=== PATIENT | male | born 1970 | race Caucasian/White ===

== ENCOUNTER 2017-02-21 18:28 | Inpatient (IN) | payer BC ==
[~2017-02-21] VITALS: Ht 188 cm; Wt 88.0 kg
[2017-02-21 18:29] VITALS: BP 137/90; PULSE 76; RESP 16; TEMP 97.8; O2SAT 99
[2017-02-21] MEDS ORDERED: DOXY100C PO (18:48)
--- NOTE | 2017-02-21 19:30 | PD ---
HPI Chief Complaint: Skin Problem Time Seen by Provider: 19:25 Travel History International Travel<30 days: No Contact w/Intl Traveler<30days: No Traveled to known affect area: No History of Present Illness HPI 46-year-old male presents to the emergency room for evaluation of itchy rash to bilateral anterior lower extremities. Patient states he first noticed the rash a few weeks ago on his ankles and since then it has spread. He went to his primary care physician who prescribed prednisone and doxycycline. States he has been taking both as prescribed and has run out of the prednisone. States he developed worsening redness after taking an extremely hot shower last night. He took a hot shower to soothe the itchiness. He has also been applying coconut oil to the rash. Since being on the doxycycline, patient denies having his legs exposed to the sun. When he is outside, he wears pants. He denies any pain to the legs. Patient denies fever, chills, nausea, and vomiting. Denies chronic medical conditions or daily medications. Patient also has a large bruise in the right anterior leg which he states is from accidentally hitting himself with a sledgehammer recently. FOR[facility], [facility] Past Medical History Medical History: Denies Significant Hx Influenza Vaccination: No Past Surgical History Surgical History: No Previous Surgery Social History Alcohol Use: No Tobacco Use: No Substance Use: No Allergies-Medications (Allergen,Severity, Reaction): Coded Allergies: Keflex (Verified Allergy, Severe, rash, 02/21/17) Reported Meds & Prescriptions Reported Meds & Active Scripts Active Reported Doxycycline Hyclate 100 Mg Cap 100 Mg PO BID Review of Systems Except as stated in HPI: all other systems reviewed are Neg Physical Exam Narrative GENERAL: Well-nourished, well-developed male in no acute distress. Afebrile. Ambulatory. SKIN: Focused skin assessment warm/dry. Erythematous rash and purpura of bilateral anterior lower extremities. HEAD: Normocephalic. EYES: No scleral icterus. No injection or drainage. NECK: Supple, trachea midline. No JVD or lymphadenopathy. CARDIOVASCULAR: Regular rate and rhythm without murmurs, gallops, or rubs. RESPIRATORY: Breath sounds equal bilaterally. No accessory muscle use. EXTREMITY: 2 posterior soft tissues pulses bilaterally. No obvious edema. Data Data Last Documented VS Vital Signs Date Time Temp Pulse Resp B/P Pulse Ox O2 Delivery O2 Flow Rate FiO2 02/21/17 20:09 87 16 142/84 99 Room Air 02/21/17 18:29 97.8 Orders Basic Metabolic Panel (Bmp) (02/21/17 19:40) Complete Blood Count With Diff (02/21/17 19:40) Prothrombin Time / Inr (Pt) (02/21/17 19:40) Act Partial Throm Time (Ptt) (02/21/17 19:40) Iv Access Insert/Monitor (02/21/17 19:40) Sodium Chloride 0.9% Flush (Ns Flush) (02/21/17 19:45) Vancomycin Inj (Vancomycin Inj) (02/21/17 19:45) Tetanus/Diphtheria Tox Adult (Tetanus/Di (02/21/17 19:45) Blood Culture (02/21/17 20:08) Admit To Inpatient (02/21/17 ) Vital Signs (Adult) Q4H (02/21/17 21:09) Activity Oob With Assistance (02/21/17 21:09) 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8 TH/MM3 Red Blood Count 4.71 MIL/MM3 Hemoglobin 14.9 GM/DL Hematocrit 43.3 % Mean Corpuscular Volume 92.0 FL Mean Corpuscular Hemoglobin 31.7 PG Mean Corpuscular Hemoglobin 34.5 % Concent Red Cell Distribution Width 11.9 % Platelet Count 221 TH/MM3 Mean Platelet Volume 7.9 FL Neutrophils (%) (Auto) 55.0 % Lymphocytes (%) (Auto) 18.0 % Monocytes (%) (Auto) 9.7 % Eosinophils (%) (Auto) 14.9 % Basophils (%) (Auto) 2.4 % Neutrophils # (Auto) 4.8 TH/MM3 Lymphocytes # (Auto) 1.6 TH/MM3 Monocytes # (Auto) 0.9 TH/MM3 Eosinophils # (Auto) 1.3 TH/MM3 Basophils # (Auto) 0.2 TH/MM3 CBC Comment DIFF FINAL Differential Comment Prothrombin Time 10.7 SEC Prothromb Time International 1.0 RATIO Ratio Activated Partial 23.5 SEC Thromboplast Time Sodium Level 138 MEQ/L Potassium Level 3.6 MEQ/L Chloride Level 100 MEQ/L Carbon Dioxide Level 32.7 MEQ/L Anion Gap 5 MEQ/L Blood Urea Nitrogen 34 MG/DL Creatinine 1.60 MG/DL Estimat Glomerular Filtration 47 ML/MIN Rate Random Glucose 101 MG/DL Calcium Level 9.3 MG/DL [facility] Medical Decision Making Medical Screen Exam Complete: Yes Emergency Medical Condition: Yes Medical Record Reviewed: Yes Differential Diagnosis Cellulitis, immunodeficiency, bruising, venous stasis Narrative Course 46 year-old male since to the emergency room for evaluation of bilateral anterior lower extremity redness for the past several weeks. She was seen his primary care physician and was prescribed doxycycline and prednisone. States it did not seem to improve his symptoms. Patient denies fever, chills, nausea, vomiting, and pain. States the rash feels itchy. He was told to come to the emergency room if symptoms persisted and states they appear worse today than they have so far. Physical exam reveals a lateral extremity erythema on the anterior legs. No lymphangitis. The erythema is not confluent and appears to be purpura/petechiae. CBC, CMP, PT, PTT/INR are essentially unremarkable other than mildly elevated creatinine. Vital signs stable. I spoke to my attending physician, Dr. Higginbotham, who believes patient should be admitted for IV antibiotics after failed outpatient therapy. Diagnosis Primary Impression: Cellulitis Qualified Code: L03.119 - Cellulitis of lower extremity, unspecified laterality Condition: Stable Tena Nicholson Feb 21, 2017 19:30
[2017-02-21] MEDS ORDERED: VANCOMYCIN INJ 1,250 MG in SODIUM CHLOR 0.9% 250 ML INJ 250 ML IV ONE (19:45)
[2017-02-21] MEDS ORDERED: TETANUS/DIPHTHERIA TOXOID ADULT 0.5 ML VIAL IM ONE (19:45)
[2017-02-21] MEDS ORDERED: SODIUM CHLORIDE 0.9% FLUSH 10 ML FLUSH IV FLUSH PRN ×2 (19:45→21:15)
[2017-02-21 20:09] VITALS: BP 142/84; PULSE 87; RESP 16; O2SAT 99
[2017-02-21 20:11] LABS: AUTOMATED NEUTROPHIL # 4.8 TH/MM3 (1.8-7.7); BASOPHIL # 0.2 TH/MM3 (0-0.2); BASOPHIL % 2.4 % (0.0-2.0); EOSINOPHIL # 1.3 TH/MM3 (0-0.4); EOSINOPHIL % 14.9 % (0.0-4.0); HEMATOCRIT 43.3 % (39.0-51.0); HEMO FLAGS DIFF FINAL; LYMPHOCYTE # 1.6 TH/MM3 (1.0-4.8); MEAN CORPUSCULAR HEMOGLOBIN 31.7 PG (27.0-34.0); MEAN CORPUSCULAR HGB CONC 34.5 % (32.0-36.0); MONO % 9.7 % (0.0-8.0); PLATELET COUNT 221 TH/MM3 (150-450); RED BLOOD COUNT 4.71 MIL/MM3 (4.50-5.90); RED CELL DISTRIBUTION WIDTH 11.9 % (11.6-17.2); WHITE BLOOD COUNT 8.8 TH/MM3 (4.0-11.0)
[2017-02-21 20:17] LABS: POTASSIUM 3.6 MEQ/L (3.5-5.1)
[2017-02-21 20:20] LABS: BICARBONATE 32.7 MEQ/L (21.0-32.0)
[2017-02-21 20:23] LABS: APTT (PATIENT) 23.5 SEC (24.3-30.1); PROTHROMBIN TIME - PATIENT 10.7 SEC (9.8-11.6)
--- NOTE | 2017-02-21 20:34 | PD ---
Data Data Last Documented VS Vital Signs Date Time Temp Pulse Resp B/P Pulse Ox O2 Delivery O2 Flow Rate FiO2 02/21/17 20:09 87 16 142/84 99 Room Air 02/21/17 18:29 97.8 Orders Basic Metabolic Panel (Bmp) (02/21/17 19:40) Complete Blood Count With Diff (02/21/17 19:40) Prothrombin Time / Inr (Pt) (02/21/17 19:40) Act Partial Throm Time (Ptt) (02/21/17 19:40) Iv Access Insert/Monitor (02/21/17 19:40) Sodium Chloride 0.9% Flush (Ns Flush) (02/21/17 19:45) Vancomycin Inj (Vancomycin Inj) (02/21/17 19:45) Tetanus/Diphtheria Tox Adult (Tetanus/Di (02/21/17 19:45) Blood Culture (02/21/17 20:08) Labs Laboratory Tests Test 02/21/17 20:00 White Blood Count 8.8 TH/MM3 Red Blood Count 4.71 MIL/MM3 Hemoglobin 14.9 GM/DL Hematocrit 43.3 % Mean Corpuscular Volume 92.0 FL Mean Corpuscular Hemoglobin 31.7 PG Mean Corpuscular Hemoglobin 34.5 % Concent Red Cell Distribution Width 11.9 % Platelet Count 221 TH/MM3 Mean Platelet Volume 7.9 FL Neutrophils (%) (Auto) 55.0 % Lymphocytes (%) (Auto) 18.0 % Monocytes (%) (Auto) 9.7 % Eosinophils (%) (Auto) 14.9 % Basophils (%) (Auto) 2.4 % Neutrophils # (Auto) 4.8 TH/MM3 Lymphocytes # (Auto) 1.6 TH/MM3 Monocytes # (Auto) 0.9 TH/MM3 Eosinophils # (Auto) 1.3 TH/MM3 Basophils # (Auto) 0.2 TH/MM3 CBC Comment DIFF FINAL Differential Comment Prothrombin Time 10.7 SEC Prothromb Time International 1.0 RATIO Ratio Activated Partial 23.5 SEC Thromboplast Time Sodium Level 138 MEQ/L Potassium Level 3.6 MEQ/L Chloride Level 100 MEQ/L Carbon Dioxide Level 32.7 MEQ/L Anion Gap 5 MEQ/L Blood Urea Nitrogen 34 MG/DL Creatinine 1.60 MG/DL Estimat Glomerular Filtration 47 ML/MIN Rate Random Glucose 101 MG/DL Calcium Level 9.3 MG/DL [facility] Medical Record Reviewed: Yes Supervised Visit with CHARLES: Yes Interpretation(s) Vital Signs Date Time Temp Pulse Resp B/P Pulse Ox O2 Delivery O2 Flow Rate FiO2 02/21/17 20:09 87 16 142/84 99 Room Air 02/21/17 18:29 97.8 76 16 137/90 99 CBC & BMP Diagram 02/21/17 20:00 Narrative Course I, Dr. Higginbotham, have reviewed the advance practice practitioner's documentation and am in agreement, met with the patient face to face, made the diagnosis, and the medical decision making was done by me. *My assessment and Findings: Cellulitis - failed outpatient treatment on antibiotics patient is a 46 year old male who has been treated on 2 different antibiotics for a the past month, reports that he has almost completed his last antibiotic doxycycline - reports that he has noticed increased redness with streaking up his legs since last night. denies fever/chills. reports that urgent care center told him to go to the ER for stronger antibiotics if he failed this second course of antibiotics. Patient reports that symptoms have progressed over since last night. Patient's tetanus was updated in ER. He was given dose of IV Vanco. Plan to obs for cellulitis with failed outpatient treatment. Physician Communication Physician Communication case reviewed with dr. elmore who accepts pt to service Diagnosis Primary Impression: Cellulitis Additional Impression: Renal insufficiency Admitting Information Admitting Physician Requests: Admit Disposition: 01 DISCHARGE HOME Condition: Stable Crissy Higginbotham DO Feb 21, 2017 20:34
[2017-02-21] MEDS ORDERED: NALOXONE HCL 0.4 MG/ML AMP IV PRN (21:15)
[2017-02-21] MEDS ORDERED: Vancomycin Consult Pharmacy 1 EA OTHER SCH (21:15)
[2017-02-21] MEDS ORDERED: PIPERACIL-TAZO 3.375 GM PREMIX 50 ML IV SCH (22:00)
[2017-02-21] MEDS: PIPERACIL-TAZO 4.5 GM PREMIX 100 ML IV SCH (22:56)
[2017-02-21] MEDS ORDERED: PIPERACIL-TAZO 4.5 GM PREMIX 100 ML IV SCH (23:00)
[2017-02-21 23:19] VITALS: BP 140/82; PULSE 78; RESP 16; O2SAT 100
[2017-02-22] VITALS (7 sets, daily range): BP systolic 115–142; BP diastolic 68–83; PULSE 52–63; RESP 18–20; TEMP 95.9–97.6; O2SAT 95–100
[2017-02-22] MEDS: PIPERACIL-TAZO 4.5 GM PREMIX 100 ML IV SCH ×4 (04:00→21:42)
[2017-02-22 06:26] LABS: AUTOMATED NEUTROPHIL # 2.8 TH/MM3 (1.8-7.7); BASOPHIL # 0.1 TH/MM3 (0-0.2); BASOPHIL % 0.9 % (0.0-2.0); EOSINOPHIL # 1.2 TH/MM3 (0-0.4); EOSINOPHIL % 18.3 % (0.0-4.0); HEMATOCRIT 40.9 % (39.0-51.0); HEMO FLAGS DIFF FINAL; LYMPH % 28.2 % (9.0-44.0); LYMPHOCYTE # 1.9 TH/MM3 (1.0-4.8); MEAN CELL VOLUME 92.5 FL (80.0-100.0); MEAN CORPUSCULAR HEMOGLOBIN 31.9 PG (27.0-34.0); MEAN CORPUSCULAR HGB CONC 34.5 % (32.0-36.0); MONO % 9.9 % (0.0-8.0); NEUT % 42.7 % (16.0-70.0); PLATELET COUNT 216 TH/MM3 (150-450); RED BLOOD COUNT 4.42 MIL/MM3 (4.50-5.90); WHITE BLOOD COUNT 6.7 TH/MM3 (4.0-11.0)
[2017-02-22] MEDS: SODIUM CHLORIDE 0.9% FLUSH 10 ML FLUSH IV FLUSH SCH ×2 (09:01→21:42)
--- NOTE | 2017-02-22 10:04 | HHI.HP ---
[facility] Primary Care Physician No Primary Care Physician Admission Diagnosis Cellulitis failed outpatient treatment Diagnoses: (1) Cellulitis of both lower extremities Diagnosis: Principal (2) Azotemia Diagnosis: Principal Chief Complaint: Bilateral lower extremity redness and swelling Travel History International Travel<30 Days: No Contact w/Intl Traveler <30 Da: No Traveled to Known Affected Are: No History of Present Illness Written by Rei Enriquez, acting as scribe for Dr. Argueta on 02/22/17 at 09: 53. This note was transcribed by scribDayanara GRAVES. I, Dr. Nga Argueta personally performed the history, physical exam, and medical decision making; and confirmed the accuracy of the information in the transcribed note. Authenticated by Dr. Nga Argueta on 02/22/17 at 09:53. 46-year-old male with no chronic medical illnesses who presented to hospital because of worsening lower extremity redness and swelling. Patient indicates that over the last couple months he is developed a rash on his bilateral lower extremities. He has undergone multiple treatments with Benadryl cream, Neosporin cream, doxycycline, oral steroids. Patient states that this rash does get better but then flares back up again. He indicates was doing well and then he hit his collins with a sledgehammer and developed a wound and which caused a rash to get worse. He did go to a facility and get treatment with doxycycline and prednisone. He states that it was improving but then it flared back up again so he came to the hospital for evaluation. He seems to think that if flared back up worse this time because he indicates that whenever he applies hot water to the rash than the itching goes away. So he exposed his legs to very hot water. He indicates that the rash is very itchy. 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 Patient indicates that the rash is 100% better than last night. Patient denies any fever, chills, purulent drainage. Patient denies any history of asthma, allergies. He does indicate that his mother does have history of asthma as well as rashes Review of Systems Constitutional: DENIES: Diaphoretic episodes, Fatigue, Fever, Weight gain, Weight loss, Chills, Dizziness, Change in appetite, Night Sweats Eyes: DENIES: Blurred vision, Diplopia, Eye inflammation, Eye pain, Vision loss , Double Vision Ears, nose, mouth, throat: DENIES: Hearing loss, Nasal discharge, Throat pain, Ear Pain, Running Nose, Sinus Pain Respiratory: DENIES: Apneas, Cough, Snoring, Wheezing, Hemoptysis, Sputum production, Shortness of breath Cardiovascular: COMPLAINS OF: Lower Extremity Edema, DENIES: Chest pain, Palpitations, Syncope, Dyspnea on Exertion, Orthopnea Gastrointestinal: DENIES: Abdominal pain, Black stools, Bloody stools, Constipation, Diarrhea, Nausea, Vomiting, Difficulty Swallowing, Anorexia Integumentary: COMPLAINS OF: Abnormal pigmentation, Pruritus, Rash Neurologic: DENIES: Abnormal gait, Headache, Localized weakness, Paresthesias, Seizures, Speech Problems, Tremor, Poor Balance Past Family Social History Past Medical History No chronic medical illnesses Past Surgical History No previous surgeries Reported Medications Reported Meds & Active Scripts Active Reported Doxycycline Hyclate 100 Mg Cap 100 Mg PO BID Allergies: Coded Allergies: Keflex (Verified Allergy, Severe, rash, 02/21/17) Family History Reviewed is significant for mother having asthma and rashes Social History Patient quit smoking over 20 years ago, prior to that he smoked up to a pack a cigarettes a day for 10 years. Patient quit drinking alcohol 18 years ago. Patient denies any illicit drug use Physical Exam Vital Signs Vital Signs Date Time Temp Pulse Resp B/P Pulse Ox O2 Delivery O2 Flow Rate FiO2 02/22/17 08:00 95.9 58 18 142/75 95 02/22/17 04:00 97.5 56 20 131/73 98 02/22/17 00:31 54 02/22/17 00:00 96.5 52 20 139/83 100 02/21/17 23:19 78 16 140/82 100 Room Air 02/21/17 20:09 87 16 142/84 99 Room Air 02/21/17 18:29 97.8 76 16 137/90 99 Physical Exam GENERAL: Well-developed, well-nourished, in no acute distress. alert and orientated HEENT: Head is normocephalic without any lesions or masses noted. Facial features are symmetric. Eyes: Pupils equal round reactive to light. Extraocular muscles are intact. Conjunctivae were clear. Oropharyngeal: Pharynx without any erythema edema. Tongue is midline without deviation. Buccal mucosa is moist without any masses or lesions NECK: Supple without any masses. Trachea midline no deviation. No JVD, no bruits are appreciated CARDIAC: Regular rhythm, regular rate. S1/S2 are heard. No murmurs gallops or rubs. LUNGS: Clear to auscultation bilaterally. No wheeze, rhonchi or rales. No use of accessory muscles on inspiration or expiration. ABDOMEN: Soft, nontender. Nondistended. Bowel sounds heard in all 4 quadrants. No organomegaly or masses. Negative rebound, negative guarding EXTREMITIES: No edema, pulses are equal bilaterally. No cyanosis or clubbing NEUROLOGY: Mood and affect appear appropriate. Cranial nerves II through XII grossly intact. Muscle strength 5/5 in upper and lower extremities bilaterally. Deep tendon reflexes are 2+ in upper and lower extremities bilaterally. BILATERAL LOWER EXTREMITY: Patient has erythematous macular and papular rash noted over the anterior tibia from tibial tuberosity down to ankle. The rash is mildly blanchable. There is open wound with skin discoloration noted over the mid right tibia without any exudates. Laboratory Laboratory Tests Test 02/21/17 02/22/17 20:00 05:35 White Blood Count 8.8 6.7 Red Blood Count 4.71 4.42 Hemoglobin 14.9 14.1 Hematocrit 43.3 40.9 Mean Corpuscular Volume 92.0 92.5 Mean Corpuscular Hemoglobin 31.7 31.9 Mean Corpuscular Hemoglobin 34.5 34.5 Concent Red Cell Distribution Width 11.9 12.0 Platelet Count 221 216 Mean Platelet Volume 7.9 8.1 Neutrophils (%) (Auto) 55.0 42.7 Lymphocytes (%) (Auto) 18.0 28.2 Monocytes (%) (Auto) 9.7 9.9 Eosinophils (%) (Auto) 14.9 18.3 Basophils (%) (Auto) 2.4 0.9 Neutrophils # (Auto) 4.8 2.8 Lymphocytes # (Auto) 1.6 1.9 Monocytes # (Auto) 0.9 0.7 Eosinophils # (Auto) 1.3 1.2 Basophils # (Auto) 0.2 0.1 CBC Comment DIFF FINAL DIFF FINAL Differential Comment Prothrombin Time 10.7 Prothromb Time International 1.0 Ratio Activated Partial 23.5 Thromboplast Time Sodium Level 138 140 Potassium Level 3.6 4.0 Chloride Level 100 101 Carbon Dioxide Level 32.7 31.0 Anion Gap 5 8 Blood Urea Nitrogen 34 26 Creatinine 1.60 1.20 Estimat Glomerular Filtration 47 65 Rate Random Glucose 101 90 Calcium Level 9.3 8.8 Date/Time Procedure Status Source Growth 02/21/17 20:15 Aerobic Blood Culture Received Blood Peripheral Pending 02/21/17 20:15 Anaerobic Blood Culture Received Blood Peripheral Pending Result Diagram: 02/22/17 0535 02/22/17 0535 Assessment and Plan Assessment and Plan 46-year-old male who presents with over 2 month history of recurrent rash, swelling of bilateral lower extremities Cellulitis of bilateral lower extremities Etiology unclear this time could be inflammatory with secondary infectious component Continued on vancomycin and Zosyn Avoid any topical creams at this time Continue monitor for response to treatment Monitor blood cultures Azotemia, unknown chronic versus acute: Improving 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 In the case of services not specified as inpatient-only, they are appropriately provided as inpatient services in accordance with the 2-midnight benchmark. Estimated LOS (days): 2 days is the estimated time the patient will need to remain in the hospital, assuming treatment plan goals are met and no additional complications. Post-Hospital Plan: Not yet determined Rei Enriquez Feb 22, 2017 10:04 Nga Argueta MD Feb 22, 2017 13:42
[2017-02-22] MEDS: VANCOMYCIN INJ 1,250 MG in SODIUM CHLOR 0.9% 250 ML INJ 250 ML IV SCH ×2 (10:52→22:51)
[2017-02-22] MEDS: diphenhydrAMINE HCL 25 MG CAP PO PRN (18:21)
[2017-02-23 01:26] VITALS: BP 116/71; PULSE 59; RESP 16; TEMP 97.6; O2SAT 96
[2017-02-23] MEDS: PIPERACIL-TAZO 4.5 GM PREMIX 100 ML IV SCH ×4 (04:13→21:09)
[2017-02-23 08:00] VITALS: BP 113/78; PULSE 64; RESP 16; TEMP 96.1; O2SAT 95
[2017-02-23] MEDS: SODIUM CHLORIDE 0.9% FLUSH 10 ML FLUSH IV FLUSH SCH ×2 (09:00→21:09)
[2017-02-23] MEDS ORDERED: PHARMACY ORDERED LAB ONE ×2 (10:45→22:45)
[2017-02-23] MEDS: VANCOMYCIN INJ 1,250 MG in SODIUM CHLOR 0.9% 250 ML INJ 250 ML IV SCH ×3 (11:00→16:00)
[2017-02-23] MEDS: diphenhydrAMINE HCL 25 MG CAP PO PRN ×2 (11:31→17:27)
[2017-02-23 12:00] VITALS: BP 114/72; PULSE 67; RESP 18; TEMP 95.9; O2SAT 97
--- NOTE | 2017-02-23 13:05 | HHI.PR ---
Subjective Remarks In bed. Rash is weeping however improved some. Has associated pruritus, not much pain. Swelling improving. No fever or chills/. Had some nausea, able to eat no vomiting. No cp, sob, palpitations. Objective Vitals Vital Signs Date Time Temp Pulse Resp B/P Pulse Ox O2 Delivery O2 Flow Rate FiO2 02/23/17 12:00 95.9 67 18 114/72 97 02/23/17 08:00 96.1 64 16 113/78 95 02/23/17 01:26 97.6 59 16 116/71 96 02/22/17 20:08 97.6 62 20 118/68 95 02/22/17 20:08 97.6 62 20 118/68 95 02/22/17 16:00 96.5 58 20 122/77 97 I/O 02/22/17 02/22/17 02/22/17 02/23/17 02/23/17 02/23/17 07:00 15:00 23:00 07:00 15:00 23:00 Intake Total 590 ml 720 ml 640 ml Output Total 600 ml Balance 590 ml 720 ml -600 ml 640 ml Intake Oral 240 ml 720 ml 240 ml IV Total 350 ml 400 ml Output Urine Total 600 ml # Voids 1 1 # Bowel Movements 0 Result Diagram: 02/22/17 0535 02/22/17 0535 Objective Remarks GENERAL: Well-developed, well-nourished, in no acute distress. alert and orientated SKIN / BILATERAL LOWER EXTREMITY: Patient has erythematous macular and papular rash noted over the anterior tibia from tibial tuberosity down to ankle. The rash is mildly blanchable. There is open wound with skin discoloration noted over the mid right tibia without any exudates. CARDIAC: Regular rhythm, regular rate. S1/S2 are heard. No murmurs gallops or rubs. LUNGS: Clear to auscultation bilaterally. No wheeze, rhonchi or rales. No use of accessory muscles on inspiration or expiration. ABDOMEN: Soft, nontender. Nondistended. Bowel sounds heard in all 4 quadrants. No organomegaly or masses. Negative rebound, negative guarding EXTREMITIES: No edema, pulses are equal bilaterally. No cyanosis or clubbing NEUROLOGY: Mood and affect appear appropriate. Cranial nerves II through XII grossly intact. Muscle strength 5/5 in upper and lower extremities bilaterally. Deep tendon reflexes are 2+ in upper and lower extremities bilaterally. A/P Problem List: (1) Cellulitis of both lower extremities ICD Code: L03.115 Status: Acute (2) Azotemia ICD Code: R79.89 Status: Acute Assessment and Plan 46-year-old male who presents with over 2 month history of recurrent rash, swelling of bilateral lower extremities Cellulitis of bilateral lower extremities, improving Etiology unclear this time could be inflammatory with secondary infectious component Continued on vancomycin and Zosyn Avoid any topical creams at this time Continue monitor for response to treatment Monitor blood cultures - Benadryl po for pruritus Azotemia, unknown chronic versus acute: Improving 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
[2017-02-23 16:00] VITALS: BP 138/75; PULSE 63; PULSE 68; RESP 18; TEMP 95.7; TEMP 97; O2SAT 92; O2SAT 96
[2017-02-23 20:00] VITALS: BP 124/69; PULSE 69; RESP 20; TEMP 97.5; O2SAT 96
[2017-02-24] VITALS: BP 134/76; PULSE 65; RESP 20; TEMP 97.1; O2SAT 96
[2017-02-24] MEDS: PIPERACIL-TAZO 4.5 GM PREMIX 100 ML IV SCH ×4 (03:19→21:29)
[2017-02-24] MEDS: VANCOMYCIN INJ 1,250 MG in SODIUM CHLOR 0.9% 250 ML INJ 250 ML IV SCH ×2 (03:20→18:14)
[2017-02-24] MEDS: diphenhydrAMINE HCL 25 MG CAP PO PRN ×2 (04:46→12:33)
[2017-02-24 06:45] LABS: AUTOMATED NEUTROPHIL # 2.7 TH/MM3 (1.8-7.7); BASOPHIL # 0.1 TH/MM3 (0-0.2); BASOPHIL % 0.9 % (0.0-2.0); EOSINOPHIL # 1.1 TH/MM3 (0-0.4); EOSINOPHIL % 17.8 % (0.0-4.0); HEMATOCRIT 38.9 % (39.0-51.0); HEMO FLAGS DIFF FINAL; LYMPH % 24.5 % (9.0-44.0); LYMPHOCYTE # 1.5 TH/MM3 (1.0-4.8); MEAN CORPUSCULAR HEMOGLOBIN 31.7 PG (27.0-34.0); MEAN CORPUSCULAR HGB CONC 33.7 % (32.0-36.0); MONO % 11.1 % (0.0-8.0); NEUT % 45.7 % (16.0-70.0); PLATELET COUNT 191 TH/MM3 (150-450); RED BLOOD COUNT 4.14 MIL/MM3 (4.50-5.90); RED CELL DISTRIBUTION WIDTH 12.4 % (11.6-17.2); WHITE BLOOD COUNT 6.1 TH/MM3 (4.0-11.0)
[2017-02-24 06:56] LABS: POTASSIUM 4.1 MEQ/L (3.5-5.1)
[2017-02-24 07:01] LABS: BICARBONATE 28.4 MEQ/L (21.0-32.0)
[2017-02-24 08:00] VITALS: BP 116/70; PULSE 56; RESP 18; TEMP 97.1; O2SAT 95
[2017-02-24] MEDS: SODIUM CHLORIDE 0.9% FLUSH 10 ML FLUSH IV FLUSH SCH ×2 (10:08→20:51)
--- NOTE | 2017-02-24 12:33 | HHI.PR ---
Subjective Remarks Rash not improving much, noted less drainage. No fever or chills. Rash is itchy. No n/v/d/c. Had diarrhea in the morning. Objective Vitals Vital Signs Date Time Temp Pulse Resp B/P Pulse Ox O2 Delivery O2 Flow Rate FiO2 02/24/17 08:00 97.1 56 18 116/70 95 02/24/17 05:43 02/24/17 00:00 97.1 65 20 134/76 96 02/23/17 20:00 97.5 69 20 124/69 96 02/23/17 16:00 95.7 63 18 138/75 96 I/O 02/23/17 02/23/17 02/23/17 02/24/17 02/24/17 02/24/17 07:00 15:00 23:00 07:00 15:00 23:00 Intake Total 640 ml 690 ml 240 ml 240 ml Balance 640 ml 690 ml 240 ml 240 ml Intake Oral 240 ml 690 ml 240 ml 240 ml IV Total 400 ml # Voids 1 4 1 2 # Bowel Movements 0 0 1 Result Diagram: 02/24/17 0602/24/17 0600 Objective Remarks GENERAL: Well-developed, well-nourished, in no acute distress. alert and orientated SKIN / BILATERAL LOWER EXTREMITY: Patient has erythematous macular and papular rash noted over the anterior tibia from tibial tuberosity down to ankle. The rash is mildly blanchable. There is open wound with skin discoloration noted over the mid right tibia without any exudates. CARDIAC: Regular rhythm, regular rate. S1/S2 are heard. No murmurs gallops or rubs. LUNGS: Clear to auscultation bilaterally. No wheeze, rhonchi or rales. No use of accessory muscles on inspiration or expiration. ABDOMEN: Soft, nontender. Nondistended. Bowel sounds heard in all 4 quadrants. No organomegaly or masses. Negative rebound, negative guarding EXTREMITIES: No edema, pulses are equal bilaterally. No cyanosis or clubbing NEUROLOGY: Mood and affect appear appropriate. Cranial nerves II through XII grossly intact. Muscle strength 5/5 in upper and lower extremities bilaterally. Deep tendon reflexes are 2+ in upper and lower extremities bilaterally. A/P Problem List: (1) Cellulitis of both lower extremities ICD Code: L03.115 Status: Acute (2) Azotemia ICD Code: R79.89 Status: Acute Assessment and Plan 46-year-old male who presents with over 2 month history of recurrent rash, swelling of bilateral lower extremities Cellulitis of bilateral lower extremities, improving Etiology unclear this time could be inflammatory with secondary infectious component Continued on vancomycin and Zosyn Avoid any topical creams at this time Continue monitor for response to treatment Monitor blood cultures - Benadryl po for pruritus -- Not much improved. Consult ID for recommendations. 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 Start probiotic. DVT prevention Low risk, early ambulation Discussed with the patient, nurse Nga Argueta MD Feb 24, 2017 12:33
[2017-02-24] MEDS ORDERED: LACTOBACILLUS ACIDOPHILUS TAB PO ONE (13:00)
[2017-02-24 16:00] VITALS: BP 142/72; PULSE 64; RESP 18; TEMP 97.4; O2SAT 96
[2017-02-24 19:14] LABS: C. DIFF EPI 027 PRESUMPTIVE NEGATIVE (NEGATIVE); C. DIFF TOXIN PCR NEGATIVE (NEGATIVE)
--- NOTE | 2017-02-24 19:59 | MB ---
cc: TORI FOOTE MD DATE OF CONSULTATION: 02/24/2017. REASON FOR CONSULTATION: Cellulitis, not much improved. REQUESTING PHYSICIAN: Dr. Argueta. HISTORY OF PRESENT ILLNESS: This is a 46-year-old white male who presented to the emergency department with . The patient was evaluated for an itchy rash at the bilateral anterior lower extremities. The patient reportedly noticed the rash a few weeks ago on his ankles. 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 He states that the rash started at his ankle on the right leg and later on he banged his right anterior tibia with a sledge hammer and developed a bruise. He was evaluated by the primary physician and was started on Prednisone and doxicycline. By the time he was seen, erythema was present on both anterior tibias. He states that he also used some topical neosporin and Benadryl spray on the area involved. The redness was significant and he was admitted and he was started on IV antibiotics. The patient reportedly has been applying coconut oil to the rash as well. He states that he wears long pants when [place] works[place] that he was told not go into the water and he has not done so since the onset of the rash. He denies fever, chills, nausea or vomiting or other symptoms. The patient's white blood cell count is normal. He is afebrile. He did have a low temperature of 95.7 yesterday evening. Blood culture on admission has no growth. There is a lot of crusting of the superficial skin layer with a pale discoloration and most of it is dried. This is along the area of the skin redness. There is no involvement of the posterior tibias and most of the lateral tibias. The patient denies any allergies to any particular substances. He has not been using any unusual lotions or new lotions prior to the onset of the rash. PAST MEDICAL HISTORY: Unremarkable. ALLERGIES: KEFLEX. MEDICATIONS: 1. Vancomycin. 2. Piperacillin / tazobactam. 3. Lactinex. 4. Benadryl PRN. SOCIAL HISTORY: No tobacco. The patient reportedly quit smoking cigarettes twenty years ago. No alcohol use. The patient denies illicit drugs. FAMILY HISTORY: Noncontributory. REVIEW OF SYSTEMS: Negative on a ten-point review except for itching at the anterior tibias. PHYSICAL EXAMINATION: GENERAL: This is a well-developed pleasant male in no acute distress. He is awake and alert and oriented. VITAL SIGNS: Temperature 97.4, blood pressure 142/72, heart rate 64, respirations 18. HEAD, EYES, EARS, NOSE, THROAT: The head is atraumatic. Extraocular movements grossly intact. Pupils reactive to light. No icterus. Oropharynx with no visible lesions. NECK: The neck is supple without adenopathy. LUNGS: Clear breath sounds bilaterally. HEART: Regular rate and rhythm. No murmurs, no rubs, no gallops. ABDOMEN: Bowel sounds present, soft, no tenderness appreciated. RECTAL: Not performed. EXTREMITIES: No clubbing, cyanosis or edema. Anterior tibias have erythema at both tibias and there is dried skin with scaling and crusting over the area of erythema. There is no involvement of the lateral and posterior tibias. The rash is confined in a longitudinal direction at both tibias. There are areas with increased redness. This terminates at the ankles and the feet are spared. SKIN: No diffuse rash but has a reddish hue at the chest and face and arms. NEUROLOGIC: No gross focal findings. PSYCHIATRIC: The patient is calm and cooperative. LABS: WBCs 6.1, platelet count 191,000, 45% neutrophils, 17% eosinophils, 11% monocytes, 24% lymphocytes, hemoglobin 13.1. Creatinine 1.10, BUN 17, estimated GFR is 72, sodium 142. IMPRESSION: Bilateral lower extremity cellulitis at the anterior tibia versus dermatitis questionable etiology versus severe case of eczema versus some variant of psoriasis. The patient noted that he had a tiny patch of redness at his left inner elbow, which went away when he was on the steroids. However he states that the areas at the legs did not improve when he was on the steroids. Another possibility would be fungal skin infection. The patient denied any prior problems with athlete's foot however. There are a couple of areas with breaking of the crust at the distal tibia with little erosions seen at the skin but very little wetness visible at the underlying tissue which is very superficial. RECOMMENDATIONS: 1. Continue the current antibiotic with Vancomycin and piperacillin for now. 2. Add Diflucan. 3. Apply topical hydrocortisone to the left leg only since I want to see what the effect is before applying it to the other leg as well. 4. A culture was taken of the area of the blistered skin. However, there was not much in the way of fluid and therefore it is not clear whether we can get any useful information from that. The patient does have eosinophilia which may indicate eczema or a noninfectious cause of this erythema of the lower extremities. It may very well be dermatitis, although it could potentially have become infected with bacteria. 5. If the use of topical steroids leads to improvement in the left leg, we may very well be able to stop the IV antibiotics. Thank you for this consultation. I will follow the patient's progress and will make further recommendations if necessary. Follow up will be made to assess his response. Tori Foote MD FD/JCFrantz /7:27 PM /7:43 PM
[2017-02-24] MEDS: LACTOBACILLUS ACIDOPHILUS TAB PO SCH (20:51)
[2017-02-24] MEDS: HYDROCORTISONE 2.5% CREAM 30 GM TOPICAL SCH (21:26)
[2017-02-24] MEDS: FLUCONAZOLE 200 MG TAB PO SCH (21:26)
[2017-02-25 00:26] VITALS: BP 125/70; PULSE 62; RESP 18; TEMP 97.3; O2SAT 97
[2017-02-25] MEDS: PIPERACIL-TAZO 4.5 GM PREMIX 100 ML IV SCH ×3 (03:44→16:30)
[2017-02-25] MEDS ORDERED: VANCOMYCIN TROUGH ONE (03:45)
[2017-02-25] MEDS: VANCOMYCIN INJ 1,250 MG in SODIUM CHLOR 0.9% 250 ML INJ 250 ML IV SCH ×2 (04:38→17:16)
[2017-02-25 08:00] VITALS: BP 121/66; PULSE 52; RESP 18; TEMP 97.6; O2SAT 96
[2017-02-25] MEDS: FLUCONAZOLE 200 MG TAB PO SCH (08:06)
[2017-02-25] MEDS: LACTOBACILLUS ACIDOPHILUS TAB PO SCH (08:06)
[2017-02-25] MEDS: SODIUM CHLORIDE 0.9% FLUSH 10 ML FLUSH IV FLUSH SCH (08:07)
[2017-02-25] MEDS: HYDROCORTISONE 2.5% CREAM 30 GM TOPICAL SCH (08:07)
--- NOTE | 2017-02-25 08:31 | HHI.PR ---
Subjective Remarks Says rash is improving especially with steroids topical applied on the left leg. He has no fevers. There is no weeping fluid from wounds/rash. Rash is turning into a thick layer of skin. No n/v/d/c. Objective Vitals Vital Signs Date Time Temp Pulse Resp B/P Pulse Ox O2 Delivery O2 Flow Rate FiO2 02/25/17 04:13 02/25/17 00:26 97.3 62 18 125/70 97 02/24/17 16:00 97.4 64 18 142/72 96 I/O 02/24/17 02/24/17 02/24/17 02/25/17 02/25/17 02/25/17 07:00 15:00 23:00 07:00 15:00 23:00 Intake Total 240 ml 850 ml 1290 ml Balance 240 ml 850 ml 1290 ml Intake Oral 240 ml 850 ml 480 ml IV Total 810 ml # Voids 2 3 2 # Bowel Movements 1 2 Result Diagram: 02/24/17 0600 02/25/17 0323 Objective Remarks GENERAL: Well-developed, well-nourished, in no acute distress. alert and orientated SKIN / BILATERAL LOWER EXTREMITY: Patient has erythematous macular and papular rash noted over the anterior tibia from tibial tuberosity down to ankle. The rash is mildly blanchable. There is open wound with skin discoloration noted over the mid right tibia without any exudates. Rash is improving especially on the left leg CARDIAC: Regular rhythm, regular rate. S1/S2 are heard. No murmurs gallops or rubs. LUNGS: Clear to auscultation bilaterally. No wheeze, rhonchi or rales. No use of accessory muscles on inspiration or expiration. ABDOMEN: Soft, nontender. Nondistended. Bowel sounds heard in all 4 quadrants. No organomegaly or masses. Negative rebound, negative guarding EXTREMITIES: No edema, pulses are equal bilaterally. No cyanosis or clubbing NEUROLOGY: Mood and affect appear appropriate. Cranial nerves II through XII grossly intact. Muscle strength 5/5 in upper and lower extremities bilaterally. Deep tendon reflexes are 2+ in upper and lower extremities bilaterally. A/P Problem List: (1) Cellulitis of both lower extremities ICD Code: L03.115 Status: Acute (2) Azotemia ICD Code: R79.89 Status: Acute Assessment and Plan 46-year-old male who presents with over 2 month history of recurrent rash, swelling of bilateral lower extremities Cellulitis of bilateral lower extremities, improving Note patient was on Doxycycline PO abx as OP, patient might have been exposed to the sun and might have photosensitivity reaction. Rash is however improving. Etiology unclear this time could be inflammatory with secondary infectious component Continued on vancomycin and Zosyn for now. Seen by ID specialist Dr Santos. Started trial of topical steroids on left collins and rash is improved. Per ID Dr if rash imprpved might consider stopping IV abx. Continue monitor for response to treatment Monitor blood cultures Benadryl po for pruritus Consult ID specialist for recommendations. 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 Start probiotic. DVT prevention Low risk, early ambulation Discussed with the patient, nurse DC plan: pendiong impropvem,dnt and clearance from ID specialist. Poss DC later today or tomorrow if continues to improve. Nga Argueta MD Feb 25, 2017 08:31
[2017-02-25 12:00] VITALS: BP 137/73; PULSE 68; RESP 18; TEMP 97; O2SAT 96
[2017-02-25] MEDS: diphenhydrAMINE HCL 25 MG CAP PO PRN (12:00)
[2017-02-25] MEDS ORDERED: LACT PO (15:01)
[2017-02-25] MEDS ORDERED: BENA25CA4 PO (15:01)
[2017-02-25] MEDS ORDERED: HYDR2.5C TOPICAL (15:01)
--- NOTE | 2017-02-25 15:01 | HHI.DS ---
Discharge Summary Admission Date Feb 21, 2017 at 21:10 Discharge Date: Feb 25, 2017 Admitting Diagnosis Cellulitis failed outpatient treatment (1) Cellulitis of both lower extremities ICD Code: L03.115 Diagnosis: Principal (2) Azotemia ICD Code: R79.89 Diagnosis: Principal Procedures none Brief History - From Admission Written by Rei Enriquez, acting as scribe for Dr. Argueta on 02/22/17 at 09: 53. This note was transcribed by scribe Rei GRAVES. I, Dr. Nga Argueta personally performed the history, physical exam, and medical decision making; and confirmed the accuracy of the information in the transcribed note. Authenticated by Dr. Nga Argueta on 02/22/17 at 09:53. 46-year-old male with no chronic medical illnesses who presented to hospital because of worsening lower extremity redness and swelling. Patient indicates that over the last couple months he is developed a rash on his bilateral lower extremities. He has undergone multiple treatments with Benadryl cream, Neosporin cream, doxycycline, oral steroids. Patient states that this rash does get better but then flares back up again. He indicates was doing well and then he hit his collins with a sledgehammer and developed a wound and which caused a rash to get worse. He did go to a facility and get treatment with doxycycline and prednisone. He states that it was improving but then it flared back up again so he came to the hospital for evaluation. He seems to think that if flared back up worse this time because he indicates that whenever he applies hot water to the rash than the itching goes away. So he exposed his legs to very hot water. He indicates that the rash is very itchy. 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 Patient indicates that the rash is 100% better than last night. Patient denies any fever, chills, purulent drainage. Patient denies any history of asthma, allergies. He does indicate that his mother does have history of asthma as well as rashes CBC/BMP: 02/24/17 0600 02/25/17 0323 Significant Findings Laboratory Tests Test 02/24/17 02/25/17 06:00 03:23 Red Blood Count 4.14 MIL/MM3 (4.50-5.90) Hematocrit 38.9 % (39.0-51.0) Monocytes (%) (Auto) 11.1 % (0.0-8.0) Eosinophils (%) (Auto) 17.8 % (0.0-4.0) Eosinophils # (Auto) 1.1 TH/MM3 (0-0.4) Estimat Glomerular Filtration 72 ML/MIN (>89) 65 ML/MIN (>89) Rate Calcium Level 8.2 MG/DL (8.5-10.1) Vancomycin Level Trough 11.4 MCG/ML (5.0-10.0) PE at Discharge GENERAL: Well-developed, well-nourished, in no acute distress. alert and orientated SKIN / BILATERAL LOWER EXTREMITY: Patient has erythematous macular and papular rash noted over the anterior tibia from tibial tuberosity down to ankle. The rash is mildly blanchable. There is open wound with skin discoloration noted over the mid right tibia without any exudates. Rash is improving especially on the left leg CARDIAC: Regular rhythm, regular rate. S1/S2 are heard. No murmurs gallops or rubs. LUNGS: Clear to auscultation bilaterally. No wheeze, rhonchi or rales. No use of accessory muscles on inspiration or expiration. ABDOMEN: Soft, nontender. Nondistended. Bowel sounds heard in all 4 quadrants. No organomegaly or masses. Negative rebound, negative guarding EXTREMITIES: No edema, pulses are equal bilaterally. No cyanosis or clubbing NEUROLOGY: Mood and affect appear appropriate. Cranial nerves II through XII grossly intact. Muscle strength 5/5 in upper and lower extremities bilaterally. Deep tendon reflexes are 2+ in upper and lower extremities bilaterally. Hospital Course 46-year-old male who presents with over 2 month history of recurrent rash, swelling of bilateral lower extremities Cellulitis of bilateral lower extremities, improving Note patient was on Doxycycline PO abx as OP, patient might have been exposed to the sun and might have photosensitivity reaction. Rash is however improving. Etiology unclear this time could be inflammatory with secondary infectious component Received vancomycin and Zosyn. Added fluconazole. Seen by ID specialist Dr Dontfraid. Started trial of topical steroids on left collins and rash is improved. Per ID if rash improved might consider stopping IV abx. Continue monitor for response to treatment Monitor blood cultures Benadryl po for pruritus Consult ID specialist for recommendations. Discussed with Dr Santos from ID. DC all antibiotics, no Doxycycline at [place]. Azotemia, unknown chronic versus acute: Improving. Kidney function is back to normal with IVF. Encouraged PO intake. 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 Start probiotic. DVT prevention Low risk, early ambulation Discussed with the patient, nurse Improving. Discharge home in stable condition to follow up as OP with PCP and consultants. Patient to follow up also with dermatology as OP. Pt Condition on Discharge: Stable Discharge Disposition: Discharge Home Discharge Time: > 30 minutes Discharge Instructions DIET: Follow Instructions for: As Tolerated, No Restrictions Activities you can perform: Regular-No Restrictions Follow up Referrals: Dermatology - 3-5 Days PCP Follow-up - 3-5 Days New Medications: Diphenhydramine HCl (Benadryl Allergy) 25 Mg Cap 25 MG PO Q6H PRN ITCHING #20 CAP Hydrocortisone Topical (Hydrocortisone Topical) 2.5% Cream 1 APPLIC TOPICAL BID Rash Days 7 TUBE Lactobacillus Acidophilus (Acidophilus/l-Sporogenes) 1 Tab Tab 1 TAB PO DAILY probiotic #30 TAB Discontinued Medications: Doxycycline Hyclate (Doxycycline Hyclate) 100 Mg Cap 100 MG PO BID Infection Ref 0 CAP Nga Argueta MD Feb 25, 2017 15:01
[2017-02-25 16:00] VITALS: BP 133/74; PULSE 63; RESP 18; TEMP 97.9; O2SAT 96
[2017-02-25] MEDS ORDERED: DOXY100C PO (18:04)
--- NOTE | 2017-02-25 18:05 | HHI.IDPN ---
Note Infectious Disease Note Patient fells okay. No fever. Areas of redness at the anterior tibia not itching as much. PAST MEDICAL HISTORY: Unremarkable. ALLERGIES: KEFLEX. MEDICATIONS: 1. Vancomycin. 2. Piperacillin / tazobactam. SOCIAL HISTORY: No tobacco. The patient reportedly quit smoking cigarettes twenty years ago. No alcohol use. The patient denies illicit drugs. PHYSICAL EXAMINATION: GENERAL: No acute distress. He is awake and alert and oriented. HEAD, EYES, EARS, NOSE, THROAT: The head is atraumatic. Extraocular movements grossly intact. Pupils reactive to light. No icterus. Oropharynx with no visible lesions. NECK: The neck is supple without adenopathy. LUNGS: Clear breath sounds bilaterally. HEART: Regular rate and rhythm. No murmurs, no rubs, no gallops. ABDOMEN: Bowel sounds present, soft, no tenderness appreciated. EXTREMITIES: No clubbing, cyanosis or edema. Anterior tibias have erythema at both tibias and there is dried skin with scaling and crusting over the area of erythema. There is no involvement of the lateral and posterior tibias. The rash is confined in a longitudinal direction at both tibias. rash looks faded. SKIN: No diffuse rash but has a reddish hue at the chest and face and arms. NEUROLOGIC: No gross focal findings. PSYCHIATRIC: The patient is calm and cooperative. IMPRESSION: Bilateral lower extremity Dermatitis. Eczema versus some variant of psoriasis. Wound culture pending. Gram stain has gram positive cocci in pairs and clusters. RECOMMENDATIONS: 1. Stop Vancomycin and piperacillin for now. 2. Okay to discharge with topical steroid and PO doxycycline. 3. Patient needs to see a neurology stroke physician if the skin erythema dose not clear up. Jonathan Santos MD Feb 25, 2017 18:05
== END 2017-02-25 19:46 | disposition home or self-care (01) | DRG 603 ==
LOC: PHEFT 18:28 → PHEDA 21:10 → PH3B 02-22 00:15
PROVIDERS: ADMIT Hospitalist; ATTEND Hospitalist
DX: L03.115 Cellulitis of right lower limb (principal); N28.9 Disorder of kidney and ureter, unspecified; L30.9 Dermatitis, unspecified; L03.116 Cellulitis of left lower limb; Z82.5 Family history of asthma and other chronic lower respiratory diseases; Z87.891 Personal history of nicotine dependence; R79.89 Other specified abnormal findings of blood chemistry
CPT/HCPCS: 80048; 80202; 82565; 85025; 85610; 85730; 86403; 87040; 87070; 87205; 87493; 90471; 90714; 96365; J2543; J3370; J7050